=== PATIENT | female | born 1955 | race African-American/Black ===

== ENCOUNTER 2017-03-08 18:03 | Inpatient (IN) | payer MEDICAID ==
[~2017-03-08] VITALS: Ht 170.2 cm; Wt 79.8 kg
[2017-03-08] MEDS ORDERED: LORA10TA7 PO (18:12)
[2017-03-08] MEDS ORDERED: LEVO25TA9 PO (18:12)
[2017-03-08] MEDS ORDERED: SERT100T12 PO (18:12)
[2017-03-08] MEDS ORDERED: LOPE2 PO (18:12)
[2017-03-08] MEDS ORDERED: ARIP10TA8 PO (18:12)
[2017-03-08] MEDS ORDERED: OMEP20 PO (18:12)
[2017-03-08] MEDS ORDERED: GABA-531 PO (18:12)
[2017-03-08] MEDS ORDERED: MIRT15 PO (18:12)
[2017-03-08] MEDS ORDERED: RANI150T7 PO (18:12)
[2017-03-08 18:47] LABS: BASOPHILS % (AUTO) 0.7 % (0.0-2.0); EOSINOPHILS % (AUTO) 0.7 % (1.0-6.0); HEMATOCRIT 43.1 % (36-46); HEMOGLOBIN 14.3 g/dL (12.0-16.0); LYMPHOCYTES # (AUTO) 1.9 K/uL (1.0-4.8); LYMPHOCYTES % (AUTO) 26.9 % (22.0-44.0); MEAN CORPUSCULAR HEMOGLOBIN 26.5 pg (26.0-34.0); MEAN CORPUSCULAR HGB CONC 33.3 G/dL (31.0-37.0); MEAN CORPUSCULAR VOLUME 80 fL (80-100); MONOCYTES # (AUTO) 0.7 K/uL (0.1-1.0); MONOCYTES % (AUTO) 10.2 % (2.0-9.0); NEUTROPHILS # (AUTO) 4.4 K/uL (1.8-7.7); NEUTROPHILS % (AUTO) 61.5 % (40.0-70.0); PLATELET COUNT (AUTO) 163 K/uL (150-450); WHITE BLOOD COUNT (AUTO) 7.1 K/uL (4.5-11.0)
[2017-03-08] MEDS ORDERED: IOVERSOL 320 MG/ML 100 ML VIAL ONE (18:47)
[2017-03-08 18:58] LABS: CALCIUM, TOTAL 9.3 mg/dL (8.8-10.5); CREATININE 1.32 mg/dL (0.60-1.30); POTASSIUM 3.4 mmol/L (3.5-5.1)
[2017-03-08 19:04] LABS: ALBUMIN 3.7 g/dL (3.4-5.0); BILIRUBIN,TOTAL 0.4 mg/dL (0.1-1.0); TOTAL PROTEIN, SERUM 9.1 g/dL (6.4-8.2)
[2017-03-08 19:06] LABS: RBC MORPHOLOGY COMMENT NORMAL RBC MORPH
[2017-03-08] MEDS ORDERED: SODIUM CHLORIDE 0.9% 1,000 ML IV ONE (19:15)
[2017-03-08] MEDS ORDERED: ONDANSETRON HCL 4 MG/2 ML VIAL IVP ONE (19:45)
[2017-03-08] MEDS ORDERED: ONDANSETRON HCL 4 MG/2 ML VIAL IVP PRN (20:15)
[2017-03-08] MEDS ORDERED: 0.9% SODIUM CHLORIDE 10 ML SYRINGE IVP PRN (20:15)
[2017-03-08] MEDS ORDERED: ACETAMINOPHEN 325 MG TABLET PO PRN (20:15)
[2017-03-08 20:33] LABS: THYROID STIMULATING HORMONE 1.62 uIU/mL (0.36-3.74)
[2017-03-08 21:04] VITALS: BP 123/86
[2017-03-08] MEDS ORDERED: ONDANSETRON HCL 4 MG/2 ML VIAL IM PRN (22:00)
[2017-03-08] MEDS: HEPARIN SODIUM,PORCINE 5,000 UNITS/ML VIAL SQ SCH (23:00)
[2017-03-08] MEDS: HYDROCODONE/ACETAMINOPHEN 5-325 MG TABLET PO PRN (23:00)
[2017-03-08] MEDS: DEXTROSE 5%-0.45% SODIUM CHL 1,000 ML IV SCH (23:07)
[2017-03-08] MEDS: ONDANSETRON HCL 4 MG/2 ML VIAL IVP PRN (23:20)
[2017-03-09] VITALS (7 sets, daily range): BP systolic 106–128; BP diastolic 61–84
[2017-03-09] MEDS ORDERED: PNEUMOCOCCAL VACCINE POLYVALENT 0.5 ML VIAL [PPSV23] IM ONE (06:00)
[2017-03-09] MEDS ORDERED: INFLUENZA VIRUS VACCINE QVS 2017-18 (3YR+)/PF 60 MCG/0.5 ML SYRINGE IM ONE (06:00)
[2017-03-09 07:05] LABS: BASOPHILS # (AUTO) 0.02 K/uL (0.00-0.20); BASOPHILS % (AUTO) 0.5 % (0.0-2.0); EOSINOPHILS # (AUTO) 0.08 K/uL (0.00-0.70); EOSINOPHILS % (AUTO) 1.77 % (1.0-6.0); HEMATOCRIT 39.5 % (36-46); LYMPHOCYTES # (AUTO) 1.8 K/uL (1.0-4.8); MEAN CORPUSCULAR HEMOGLOBIN 26.1 pg (26.0-34.0); MEAN CORPUSCULAR VOLUME 79 fL (80-100); MONOCYTES # (AUTO) 0.5 K/uL (0.1-1.0); MONOCYTES % (AUTO) 10.2 % (2.0-9.0); NEUTROPHILS # (AUTO) 2.4 K/uL (1.8-7.7); NEUTROPHILS % (AUTO) 50.5 % (40.0-70.0); PLATELET COUNT (AUTO) 143 K/uL (150-450); RED CELL DISTRIBUTION WIDTH 15.3 % (11.5-14.5); WHITE BLOOD COUNT (AUTO) 4.8 K/uL (4.5-11.0)
[2017-03-09 07:38] LABS: BILIRUBIN,TOTAL 0.4 mg/dL (0.1-1.0); CALCIUM, TOTAL 8.4 mg/dL (8.8-10.5); CREATININE 1.26 mg/dL (0.60-1.30); TOTAL PROTEIN, SERUM 7.3 g/dL (6.4-8.2)
[2017-03-09 07:44] LABS: POTASSIUM 2.5 mmol/L (3.5-5.1)
[2017-03-09] MEDS: HEPARIN SODIUM,PORCINE 5,000 UNITS/ML VIAL SQ SCH ×3 (08:00→23:55)
[2017-03-09] MEDS: DEXTROSE 5%-0.45% SODIUM CHL 1,000 ML IV SCH ×3 (08:00→21:11)
[2017-03-09] MEDS: ONDANSETRON HCL 4 MG/2 ML VIAL IVP PRN ×3 (08:04→23:58)
[2017-03-09] MEDS ORDERED: POTASSIUM CHL 10 MEQ/WATER 50 ML IV PRN (09:45)
[2017-03-09] MEDS ORDERED: SODIUM CHLORIDE 0.9% 500 ML IV ONE (10:33)
[2017-03-09] MEDS: POTASSIUM CHLORIDE 20 MEQ ER TABLET PO PRN ×2 (11:34→17:00)
[2017-03-09] MEDS: HYDROCODONE/ACETAMINOPHEN 5-325 MG TABLET PO PRN (14:37)
[2017-03-09] MEDS: LORATADINE 10 MG TABLET PO SCH (20:45)
[2017-03-09] MEDS: GABAPENTIN 300 MG CAPSULE PO SCH (20:45)
[2017-03-09] MEDS ORDERED: LOPERAMIDE HCL 2 MG CAPSULE PO PRN (20:45)
[2017-03-09] MEDS: OMEPRAZOLE 20 MG CAPSULE PO SCH (20:45)
[2017-03-09] MEDS: RANITIDINE HCL 150 MG TABLET PO SCH (21:00)
[2017-03-09] MEDS: ARIPiprazole 10 MG TABLET PO SCH (21:00)
[2017-03-09] MEDS: MIRTAZAPINE 15 MG TABLET PO SCH (21:00)
[2017-03-09] MEDS: SERTRALINE HCL 100 MG TABLET PO SCH (21:00)
[2017-03-10 04:00] VITALS: BP 106/64
[2017-03-10] MEDS: DEXTROSE 5%-0.45% SODIUM CHL 1,000 ML IV SCH ×2 (06:00→19:18)
[2017-03-10] MEDS: LEVOTHYROXINE SODIUM 25 MCG TABLET PO SCH (06:02)
[2017-03-10 07:15] LABS: BASOPHILS % (AUTO) 0.6 % (0.0-2.0); EOSINOPHILS % (AUTO) 2.1 % (1.0-6.0); HEMATOCRIT 38.1 % (36-46); HEMOGLOBIN 12.7 g/dL (12.0-16.0); LYMPHOCYTES # (AUTO) 1.9 K/uL (1.0-4.8); LYMPHOCYTES % (AUTO) 41.5 % (22.0-44.0); MEAN CORPUSCULAR HEMOGLOBIN 26.5 pg (26.0-34.0); MEAN CORPUSCULAR HGB CONC 33.3 G/dL (31.0-37.0); MEAN CORPUSCULAR VOLUME 80 fL (80-100); MONOCYTES # (AUTO) 0.5 K/uL (0.1-1.0); MONOCYTES % (AUTO) 9.6 % (2.0-9.0); NEUTROPHILS # (AUTO) 2.2 K/uL (1.8-7.7); NEUTROPHILS % (AUTO) 46.2 % (40.0-70.0); PLATELET COUNT (AUTO) 149 K/uL (150-450); RED BLOOD CELL COUNT(AUTO) 4.78 MIL/uL (4.00-5.20); RED CELL DISTRIBUTION WIDTH 15.2 % (11.5-14.5); WHITE BLOOD COUNT (AUTO) 4.7 K/uL (4.5-11.0)
[2017-03-10 07:22] LABS: RBC MORPHOLOGY COMMENT NORMAL RBC MORPH
[2017-03-10 07:29] LABS: ANION GAP 9 mmol/L (8-16); CALCIUM, TOTAL 8.4 mg/dL (8.8-10.5); CARBON DIOXIDE 29 mmol/L (22-29); CHLORIDE 100 mmol/L (98-107); CREATININE 1.06 mg/dL (0.60-1.30); GLOMERULAR FILTR. RATE CALC > 60 mL/min (>60); SODIUM SERUM 138 mmol/L (136-145); UREA NITROGEN, BLOOD 2 mg/dL (7-18)
[2017-03-10 07:53] VITALS: BP 108/61
[2017-03-10] MEDS: HEPARIN SODIUM,PORCINE 5,000 UNITS/ML VIAL SQ SCH ×2 (09:21→16:50)
[2017-03-10] MEDS: OMEPRAZOLE 20 MG CAPSULE PO SCH (09:21)
[2017-03-10] MEDS: GABAPENTIN 300 MG CAPSULE PO SCH (09:21)
[2017-03-10] MEDS: POTASSIUM CHLORIDE 20 MEQ ER TABLET PO PRN (09:21)
[2017-03-10] MEDS: LORATADINE 10 MG TABLET PO SCH (09:22)
[2017-03-10] MEDS: RANITIDINE HCL 150 MG TABLET PO SCH ×2 (09:22→20:47)
[2017-03-10] MEDS: ONDANSETRON HCL 4 MG/2 ML VIAL IVP PRN ×2 (09:22→17:00)
[2017-03-10] MEDS: SERTRALINE HCL 100 MG TABLET PO SCH (09:23)
[2017-03-10] MEDS: ARIPiprazole 10 MG TABLET PO SCH (09:23)
[2017-03-10] MEDS: HYDROCODONE/ACETAMINOPHEN 5-325 MG TABLET PO PRN ×2 (09:58→17:00)
[2017-03-10] MEDS ORDERED: MAGNESIUM SULFATE 2 GM in DEXTROSE 5%-WATER 50 ML IV ONE (10:30)
[2017-03-10 11:31] VITALS: BP 104/59
[2017-03-10 16:04] VITALS: BP 97/64
[2017-03-10 19:39] VITALS: BP 95/56
[2017-03-10] MEDS: MIRTAZAPINE 15 MG TABLET PO SCH (20:47)
[2017-03-10 23:39] VITALS: BP 96/60
[2017-03-11] MEDS: HEPARIN SODIUM,PORCINE 5,000 UNITS/ML VIAL SQ SCH ×4 (00:09→23:40)
[2017-03-11 03:30] VITALS: BP 102/62
[2017-03-11] MEDS: LEVOTHYROXINE SODIUM 25 MCG TABLET PO SCH (06:30)
[2017-03-11 07:18] VITALS: BP 96/53
[2017-03-11 07:27] LABS: ANION GAP 6 mmol/L (8-16); CALCIUM, TOTAL 8.4 mg/dL (8.8-10.5); CARBON DIOXIDE 30 mmol/L (22-29); CHLORIDE 102 mmol/L (98-107); CREATININE 1.07 mg/dL (0.60-1.30); GLOMERULAR FILTR. RATE CALC > 60 mL/min (>60); POTASSIUM 3.2 mmol/L (3.5-5.1); SODIUM SERUM 138 mmol/L (136-145); UREA NITROGEN, BLOOD 1 mg/dL (7-18)
[2017-03-11] MEDS: OMEPRAZOLE 20 MG CAPSULE PO SCH (09:00)
[2017-03-11] MEDS: GABAPENTIN 300 MG CAPSULE PO SCH (09:00)
[2017-03-11] MEDS: RANITIDINE HCL 150 MG TABLET PO SCH ×2 (09:00→20:01)
[2017-03-11] MEDS: ARIPiprazole 10 MG TABLET PO SCH (09:00)
[2017-03-11] MEDS: LORATADINE 10 MG TABLET PO SCH (09:00)
[2017-03-11] MEDS: SERTRALINE HCL 100 MG TABLET PO SCH (09:00)
[2017-03-11] MEDS: DEXTROSE 5%-0.45% SODIUM CHL 1,000 ML IV SCH ×3 (09:28→23:39)
[2017-03-11 11:39] VITALS: BP 106/65
[2017-03-11] MEDS ORDERED: SODIUM CHLORIDE 0.9% 1,000 ML IV ONE (13:30)
[2017-03-11] MEDS: POTASSIUM CHLORIDE 20 MEQ ER TABLET PO PRN ×2 (15:46→23:40)
[2017-03-11] MEDS: ONDANSETRON HCL 4 MG/2 ML VIAL IVP PRN ×2 (17:10→21:04)
[2017-03-11 19:30] VITALS: BP 118/68
[2017-03-11] MEDS: MIRTAZAPINE 15 MG TABLET PO SCH (20:02)
[2017-03-11] MEDS: HYDROCODONE/ACETAMINOPHEN 5-325 MG TABLET PO PRN (20:02)
[2017-03-11 23:42] VITALS: BP 125/80
[2017-03-12 05:03] VITALS: BP 109/80
[2017-03-12] MEDS: LEVOTHYROXINE SODIUM 25 MCG TABLET PO SCH (06:06)
[2017-03-12 07:39] VITALS: BP 122/79
[2017-03-12] MEDS: DEXTROSE 5%-0.45% SODIUM CHL 1,000 ML IV SCH ×3 (08:38→22:59)
[2017-03-12] MEDS: HEPARIN SODIUM,PORCINE 5,000 UNITS/ML VIAL SQ SCH ×3 (08:38→22:58)
[2017-03-12] MEDS: RANITIDINE HCL 150 MG TABLET PO SCH ×2 (08:39→19:53)
[2017-03-12] MEDS: LORATADINE 10 MG TABLET PO SCH (08:39)
[2017-03-12] MEDS: GABAPENTIN 300 MG CAPSULE PO SCH (08:39)
[2017-03-12] MEDS: SERTRALINE HCL 100 MG TABLET PO SCH (08:39)
[2017-03-12] MEDS: ARIPiprazole 10 MG TABLET PO SCH (08:39)
[2017-03-12] MEDS: OMEPRAZOLE 20 MG CAPSULE PO SCH (08:45)
[2017-03-12] MEDS: ONDANSETRON HCL 4 MG/2 ML VIAL IVP PRN (08:45)
[2017-03-12 11:36] VITALS: BP 104/72
[2017-03-12] MEDS ORDERED: IOVERSOL 350 MG/ML 100 ML VIAL ONE (12:50)
[2017-03-12] MEDS ORDERED: BARIUM SULFATE 0.1% SUSPENSION 450 ML BOTTLE ONE (12:50)
[2017-03-12 15:47] VITALS: BP 116/74
[2017-03-12] MEDS: MIRTAZAPINE 15 MG TABLET PO SCH (19:53)
[2017-03-12] MEDS: HYDROCODONE/ACETAMINOPHEN 5-325 MG TABLET PO PRN (19:53)
[2017-03-12 21:26] VITALS: BP 105/63
[2017-03-13 00:29] VITALS: BP 109/57
[2017-03-13] MEDS ORDERED: PROPOFOL 1% 20 ML VIAL IVP ONE (01:56)
[2017-03-13] MEDS: LEVOTHYROXINE SODIUM 25 MCG TABLET PO SCH (05:19)
[2017-03-13 05:26] VITALS: BP 104/67
[2017-03-13 06:48] LABS: BASOPHILS # (AUTO) 0.04 K/uL (0.00-0.20); BASOPHILS % (AUTO) 0.7 % (0.0-2.0); EOSINOPHILS # (AUTO) 0.06 K/uL (0.00-0.70); EOSINOPHILS % (AUTO) 1.08 % (1.0-6.0); LYMPHOCYTES # (AUTO) 2.5 K/uL (1.0-4.8); LYMPHOCYTES % (AUTO) 47.6 % (22.0-44.0); MEAN CORPUSCULAR HEMOGLOBIN 26.5 pg (26.0-34.0); MEAN CORPUSCULAR HGB CONC 32.5 G/dL (31.0-37.0); MEAN CORPUSCULAR VOLUME 82 fL (80-100); MONOCYTES # (AUTO) 0.5 K/uL (0.1-1.0); MONOCYTES % (AUTO) 8.5 % (2.0-9.0); NEUTROPHILS # (AUTO) 2.2 K/uL (1.8-7.7); PLATELET COUNT (AUTO) 161 K/uL (150-450); RED CELL DISTRIBUTION WIDTH 15.5 % (11.5-14.5); WHITE BLOOD COUNT (AUTO) 5.3 K/uL (4.5-11.0)
[2017-03-13 07:06] LABS: CALCIUM, TOTAL 8.5 mg/dL (8.8-10.5); CREATININE 1.11 mg/dL (0.60-1.30); MAGNESIUM 1.4 mg/dL (1.80-2.40); POTASSIUM 3.5 mmol/L (3.5-5.1)
[2017-03-13 07:34] VITALS: BP 120/80
[2017-03-13] MEDS ORDERED: MAGNESIUM SULFATE 3 GM in DEXTROSE 5%-WATER 100 ML IV ONE (10:00)
[2017-03-13] MEDS: GABAPENTIN 300 MG CAPSULE PO SCH (10:37)
[2017-03-13] MEDS: ARIPiprazole 10 MG TABLET PO SCH (10:37)
[2017-03-13] MEDS: SERTRALINE HCL 100 MG TABLET PO SCH (10:37)
[2017-03-13] MEDS: DEXTROSE 5%-0.45% SODIUM CHL 1,000 ML IV SCH ×3 (10:37→23:23)
[2017-03-13] MEDS: HEPARIN SODIUM,PORCINE 5,000 UNITS/ML VIAL SQ SCH ×3 (10:37→23:23)
[2017-03-13] MEDS: ONDANSETRON HCL 4 MG/2 ML VIAL IVP PRN ×2 (10:37→15:32)
[2017-03-13] MEDS: OMEPRAZOLE 20 MG CAPSULE PO SCH (10:37)
[2017-03-13] MEDS: LORATADINE 10 MG TABLET PO SCH (10:37)
[2017-03-13] MEDS: RANITIDINE HCL 150 MG TABLET PO SCH ×2 (10:37→20:37)
[2017-03-13 11:20] VITALS: BP 110/68
[2017-03-13] MEDS: HYDROCODONE/ACETAMINOPHEN 5-325 MG TABLET PO PRN (15:30)
[2017-03-13] MEDS: MetroNIDAZOLE 500 MG TABLET PO SCH ×2 (15:30→20:37)
[2017-03-13 15:57] VITALS: BP 100/63
[2017-03-13] MEDS: MIRTAZAPINE 15 MG TABLET PO SCH (20:37)
[2017-03-13 21:08] VITALS: BP 87/60
[2017-03-14 01:00] VITALS: BP 93/63
[2017-03-14 05:26] VITALS: BP 103/62
[2017-03-14] MEDS: LEVOTHYROXINE SODIUM 25 MCG TABLET PO SCH (05:54)
[2017-03-14 07:29] VITALS: BP 101/58
[2017-03-14] MEDS: OMEPRAZOLE 20 MG CAPSULE PO SCH (09:25)
[2017-03-14] MEDS: DEXTROSE 5%-0.45% SODIUM CHL 1,000 ML IV SCH ×2 (09:25→14:00)
[2017-03-14] MEDS: SERTRALINE HCL 100 MG TABLET PO SCH (09:25)
[2017-03-14] MEDS: RANITIDINE HCL 150 MG TABLET PO SCH (09:25)
[2017-03-14] MEDS: GABAPENTIN 300 MG CAPSULE PO SCH (09:25)
[2017-03-14] MEDS: LORATADINE 10 MG TABLET PO SCH (09:25)
[2017-03-14] MEDS: ARIPiprazole 10 MG TABLET PO SCH (09:25)
[2017-03-14] MEDS: MetroNIDAZOLE 500 MG TABLET PO SCH ×2 (09:25→16:00)
[2017-03-14] MEDS: ONDANSETRON HCL 4 MG/2 ML VIAL IVP PRN (09:25)
[2017-03-14] MEDS: HEPARIN SODIUM,PORCINE 5,000 UNITS/ML VIAL SQ SCH ×2 (09:26→16:00)
[2017-03-14 11:39] VITALS: BP 101/71
[2017-03-14 15:32] VITALS: BP 104/64
== END 2017-03-14 19:10 | disposition home or self-care (01) | DRG 241 ==
LOC: EMS 18:06 → 6N 20:56
PROVIDERS: ADMIT Family Medicine; ATTEND Family Medicine
PROC: 0DB88ZX Excision of Small Intestine, Via Natural or Artificial Opening Endoscopic, Diagnostic (ICD-10-PCS; 2017-03-11)
PROC: 0DB68ZX Excision of Stomach, Via Natural or Artificial Opening Endoscopic, Diagnostic (ICD-10-PCS; principal; 2017-03-11 14:30)
DX: K29.70 Gastritis, unspecified, without bleeding (principal); E87.8 Other disorders of electrolyte and fluid balance, not elsewhere classified; N28.1 Cyst of kidney, acquired; K44.9 Diaphragmatic hernia without obstruction or gangrene; R11.2 Nausea with vomiting, unspecified; E03.9 Hypothyroidism, unspecified; E86.0 Dehydration; E87.6 Hypokalemia; F31.9 Bipolar disorder, unspecified; I70.8 Atherosclerosis of other arteries; K21.9 Gastro-esophageal reflux disease without esophagitis; Z88.0 Allergy status to penicillin; Z28.21 Immunization not carried out because of patient refusal
CPT/HCPCS: 74176; 74177; 83605; 83735; 84132; 84439; 84443; 88305; 88312; 96361; 96374; 99285; J1644; J2405; J2704; J3475; J3480; J7030; J7040; J7060

== ENCOUNTER 2017-08-07 17:15 | Emergency (ER) | payer MEDICAID ==
[~2017-08-07] VITALS: Ht 170.2 cm; Wt 63.6 kg
[~2017-08-07 17:15] MED LIST: ARIP10TA8 PO; GABA-531 PO; LEVO25TA9 PO; LOPE2 PO; LORA10TA7 PO; MIRT15 PO; OMEP20 PO; RANI150T7 PO; SERT100T12 PO
[2017-08-07] MEDS ORDERED: PANT40TA25 PO (17:42)
[2017-08-07] MEDS ORDERED: BARIUM SULFATE 0.1% SUSPENSION 450 ML BOTTLE PO ONE (19:15)
[2017-08-07 19:42] LABS: BASOPHILS % (AUTO) 0.5 % (0.0-2.0); EOSINOPHILS % (AUTO) 0.9 % (1.0-6.0); HEMATOCRIT 37.1 % (36-46); HEMOGLOBIN 12.4 g/dL (12.0-16.0); LYMPHOCYTES # (AUTO) 2.4 K/uL (1.0-4.8); MEAN CORPUSCULAR HEMOGLOBIN 28.1 pg (26.0-34.0); MEAN CORPUSCULAR HGB CONC 33.4 G/dL (31.0-37.0); MEAN CORPUSCULAR VOLUME 84 fL (80-100); MONOCYTES # (AUTO) 0.6 K/uL (0.1-1.0); MONOCYTES % (AUTO) 7.7 % (2.0-9.0); NEUTROPHILS # (AUTO) 4.9 K/uL (1.8-7.7); NEUTROPHILS % (AUTO) 60.9 % (40.0-70.0); PLATELET COUNT (AUTO) 267 K/uL (150-450); RED BLOOD CELL COUNT(AUTO) 4.41 MIL/uL (4.00-5.20); RED CELL DISTRIBUTION WIDTH 14.1 % (11.5-14.5)
[2017-08-07 19:50] LABS: ANION GAP 11 mmol/L (8-16); CALCIUM, TOTAL 9.3 mg/dL (8.8-10.5); CARBON DIOXIDE 31 mmol/L (22-29); CHLORIDE 103 mmol/L (98-107); CREATININE 1.02 mg/dL (0.60-1.30); GLOMERULAR FILTR. RATE CALC > 60 mL/min (>60); GLUCOSE,RANDOM 94 mg/dL (70-110); POTASSIUM 3.1 mmol/L (3.5-5.1); SODIUM SERUM 145 mmol/L (136-145); UREA NITROGEN, BLOOD 8 mg/dL (7-18)
[2017-08-07 19:55] LABS: ALANINE AMINOTRANSFERASE 18 U/L (12-78); ALBUMIN 3.8 g/dL (3.4-5.0); ALKALINE PHOSPHATASE 146 U/L (46-116); ASPARTATE AMINOTRANSFERASE 17 U/L (15-37); BILIRUBIN,TOTAL 0.4 mg/dL (0.1-1.0); LIPASE 114 U/L (73-393); PROTHROMBIN TIME 10.6 SEC (9.4-11.6); TOTAL PROTEIN, SERUM 8.1 g/dL (6.4-8.2)
[2017-08-07 21:21] LABS: APPEARANCE,URINE CLEAR (CLEAR); BILIRUBIN,URINE NEGATIVE (NEGATIVE); GLUCOSE, URINE (UA) NEGATIVE (NEGATIVE); KETONES,URINE 15 mg/dL (NEGATIVE); LEUKOCYTE ESTERASE ,URINE NEGATIVE (NEGATIVE); NITRATE,URINE NEGATIVE (NEGATIVE); OCCULT BLOOD,URINE SMALL (NEGATIVE); PROTEIN,URINE NEGATIVE (NEGATIVE); UROBILINOGEN,URINE 0.2 mg/dL (<=1.0)
[2017-08-07] MEDS ORDERED: IOVERSOL 350 MG/ML 100 ML VIAL ONE (21:37)
[2017-08-07] MEDS ORDERED: SODIUM CHLORIDE 0.9% 100 ML ONE (21:37)
[2017-08-07 21:53] LABS: BACTERIA,URINE None Seen /HPF (None Seen); RBC,URINE 0-2 /HPF (0-2); SQUAMOUS EPITHELIAL CELL,UR Few /LPF (None Seen); WBC,URINE 0-2 /HPF (0-5)
[2017-08-07] MEDS ORDERED: POTASSIUM CHLORIDE 20 MEQ ER TABLET PO ONE (23:30)
[2017-08-08 00:13] VITALS: BP 127/85
== END 2017-08-08 00:16 | disposition home or self-care (01) ==
LOC: EMS 17:17
DX: K59.00 Constipation, unspecified (principal); K21.9 Gastro-esophageal reflux disease without esophagitis; E03.9 Hypothyroidism, unspecified; Z88.0 Allergy status to penicillin
CPT/HCPCS: 36415; 74177; 80053; 81001; 83690; 85025; 85610; 85730; 99285; J7050; Q9967; Z7610

== ENCOUNTER 2022-05-23 12:17 | Emergency (ER) | payer MEDICAID ==
[~2022-05-23] VITALS: Ht 170.2 cm; Wt 62.7 kg
[~2022-05-23 12:17] MED LIST changes: +ARIP10TA38 PO; -ARIP10TA8 PO; +GABA-1181 PO; -GABA-531 PO; -LOPE2 PO; +MIRT-89 PO; -MIRT15 PO; +PANT-31 PO; +SERT-162 PO; -SERT100T12 PO
[2022-05-23] MEDS ORDERED: POLY17PO47 PO (12:28)
[2022-05-23] MEDS ORDERED: FAMO20TA8 PO (12:28)
[2022-05-23 13:08] LABS: COVID AG,FIA SOURCE NASAL SWAB
[2022-05-23 13:24] LABS: RAPID GROUP A STREP NEGATIVE (NEGATIVE)
[2022-05-23 13:58] LABS: INFLUENZA TYPE A NEGATIVE FOR TYPE A (NEGATIVE); INFLUENZA TYPE B NEGATIVE FOR TYPE B (NEGATIVE)
[2022-05-23] MEDS ORDERED: BENZ1LOZ77 PO (15:19)
[2022-05-23 15:43] VITALS: BP 116/82
== END 2022-05-23 15:49 | disposition home or self-care (01) ==
LOC: EMS 12:34
DX: J02.8 Acute pharyngitis due to other specified organisms (principal); F31.9 Bipolar disorder, unspecified; K59.00 Constipation, unspecified; E03.9 Hypothyroidism, unspecified; Z88.0 Allergy status to penicillin; Z20.822 Contact with and (suspected) exposure to COVID-19
CPT/HCPCS: 87430; 87804; 99283